=== PATIENT | female | born 2000 | race Caucasian/White ===

== ENCOUNTER 2024-02-20 02:42 | Emergency (ER) | payer BC ==
[~2024-02-20] VITALS: Ht 157.5 cm; Wt 136.4 kg
[2024-02-20 02:46] VITALS: TEMP 98
[2024-02-20] MEDS ORDERED: Ketorolac 30 MG/ML VIAL IM ONE (03:00)
[2024-02-20 03:56] VITALS: BP 128/72; PULSE 80
== END 2024-02-20 03:57 | disposition home or self-care (01) ==
LOC: COL.ER 02:42
DX: M72.2 Plantar fascial fibromatosis (principal)
CPT/HCPCS: J1885